=== PATIENT | female | born 1990 | race Caucasian/White ===

== ENCOUNTER 2017-08-18 00:38 | Emergency (ER) | payer OTHER ==
[2017-08-18 00:58] VITALS: BMI 36.0
--- NOTE | 2017-08-18 01:08 | PDOC ---
History of Present Illness - General Chief Complaint: Pain Stated Complaint: HEADACHE,24 WKS PREG Time Seen by Provider: 08/18/17 01:07 History Source: Patient Exam Limitations: No Limitations - History of Present Illness Initial Comments: 08/18/17 01:38 26-year-old femaleGravida 3 para 1 female with history of lower abdominal pain what this Complaining of lower abdominal pain and headache with nausea and vomiting. Patient reports that nausea and vomiting had with the headache has been consistent throughout this . Her care had been at [facility], patient recently moved to this area and has relocated her care to [facility]. Patient denies vaginal discharge, vaginal bleeding, lower back pain, urinary symptoms. Patient reports that throughout this she has persistent nausea which prevents her from eating or drinking. patient took 2 tylenol prior to arrival with no improvement in headache. 08/18/17 01:41 Past History - Past Medical History Allergies/Adverse Reactions: Allergies Allergy/AdvReac Type Severity Reaction Status Date / Time No Known Allergies Allergy Verified 08/18/17 00:55 Home Medications: Ambulatory Orders Acetaminophen [Tylenol] 325 mg PO QID 08/18/17 - Suicide/Smoking/Psychosocial Hx Smoking History: Current every day smoker Have you smoked in the past 12 months: No Number of Cigarettes Smoked Daily: 2 Information on smoking cessation initiated: No Hx Alcohol Use: No Drug/Substance Use Hx: No Review of Systems - Review of Systems Able to Perform ROS?: Yes Is the patient limited Korean proficient: No Constitutional: No: Symptoms Reported, See HPI, Chills, Diaphoresis, Fever, Loss of Appetite, Malaise, Night Sweats, Weakness, Weight Stable, Unintentional Wgt. Loss, Unexplained wgt Loss, Other ABD/GI: Yes: Nausea, Vomiting, Abdominal cramping. No: Symptoms Reported, See HPI, Abdominal Distended, Abd. Pain w/ defecation, Blood Streaked Bowels, Constipated, Diarrhea, Difficulty Swallowing, Poor Appetite, Poor Fluid Intake, Rectal Bleeding, Indigestion, Tarry Stools, Other : No: Symptoms Reported, See HPI, Burning, Dysuria, Discharge, Frequency, Flank Pain, Hematuria, Incontinence, Pain, Urgency, Testicular Mass, Testicular Swelling, Lesions, Testicular Pain, Other Neurological: Yes: Headache. No: Symptoms reported, See HPI, Numbness, Paresthesia, Pre-Existing Deficit, Seizure, Tingling, Tremors, Weakness, Unsteady Gait, Ataxia, Dizziness, Other *Physical Exam - Vital Signs Last Vital Signs Temp Pulse Resp BP Pulse Ox 98.2 F 63 16 123/58 99 08/18/17 00:55 08/18/17 00:55 08/18/17 00:55 08/18/17 00:55 08/18/17 00:55 - Physical Exam General Appearance: Yes: Appropriately Dressed Respiratory/Chest: positive: Lungs Clear, Normal Breath Sounds Cardiovascular: positive: Regular Rhythm, Regular Rate Gastrointestinal/Abdominal: positive: Normal Bowel Sounds, Soft, Other (gravid abdomen). negative: Tender Extremity: positive: Normal Capillary Refill, Normal Inspection, Normal Range of Motion Integumentary: positive: Normal Color, Dry, Warm Neurologic: positive: Fully Oriented, Alert, Normal Mood/Affect ED Treatment Course - LABORATORY CBC & Chemistry Diagram: 08/18/17 01:45 08/18/17 01:45 - RADIOLOGY Radiograph Interpretation: 08/18/17 02:18 There is a single live IUP in transfers position with estimated age 23 weeks and 5 days. Normal heart rate of 1 40 bpm. There is a posterior placenta without previa or abruption. Cervix is 5.1 cm in length and closed. SURESH is 4.3 cm which is decreased for age Progress Note - Progress Note Progress Note: A: abdominal pain; headache P: CBC Beta *DC/Admit/Observation/Transfer Diagnosis at time of Disposition: Abdominal pain affecting , Hyperemesis gravidarum - Discharge Dispostion Disposition: HOME - Referrals - Patient Instructions Printed Discharge Instructions: Hyperemesis Gravidarum Additional Instructions: drink plenty of fluids. take your vitamins daily take vitamin b6 as prescribed. follow up with your senior asic design engineer return to the ER if your symptoms worsen, soaking 2 pads per hour, fever, - Post Discharge Activity
[2017-08-18] MEDS ORDERED: SODIUM CHLORIDE 1,000 ML IV STA (01:16)
[2017-08-18] MEDS ORDERED: METOCLOPRAMIDE HCL INJECTION 10 MG/2 ML VIAL ONE (01:21)
[2017-08-18 01:59] LABS: BASO % 1.2 % (0-2.0); EOS % 1.2 % (0-4.5); HEMATOCRIT 32.8 % (32.4-45.2); HEMOGLOBIN 11.4 GM/dL (10.7-15.3); LYMPH % 25.3 % (8-40); MCH 29.7 pg (25.7-33.7); MCHC 34.8 g/dl (32.0-36.0); MEAN CELL VOLUME 85.5 fl (80-96); MEAN PLT VOLUME 8.3 fl (7.5-11.1); MONO % 8.8 % (3.8-10.2); NEUT % 63.5 % (42.8-82.8); PLATELET COUNT 249 K/MM3 (134-434); RBC 3.83 M/mm3 (3.60-5.2); RDW 13.6 % (11.6-15.6); WHITE BLOOD COUNT 9.6 K/mm3 (4.0-10.0)
[2017-08-18 02:00] LABS: URINE APPEARANCE SLCLOUDY; URINE BILIRUBIN NEGATIVE (NEGATIVE); URINE BLOOD NEGATIVE (NEGATIVE); URINE COLOR AMBER; URINE GLUCOSE (UA) NEGATIVE (NEGATIVE); URINE KETONE TRACE (NEGATIVE); URINE LEUK ESTERASE NEGATIVE (NEGATIVE); URINE NITRITE NEGATIVE (NEGATIVE); URINE UROBILINOGEN 4.0 E.U/dl mg/dL (0.2-1.0)
[2017-08-18 02:04] LABS: URINE PROTEIN 1+ (NEGATIVE)
[2017-08-18 02:06] LABS: CALCIUM OXALATE CRYSTALS MODERATE /hpf (NONE SEEN); EPI CELLS FEW /HPF (FEW); URINE BACTERIA MODERATE /hpf (NONE SEEN); URINE MUCUS MANY
[2017-08-18 02:15] LABS: PROTHROMBIN TIME (PATIENT) 11.3 SEC (9.98-11.88)
[2017-08-18 02:35] LABS: ANION GAP 12 (8-16); BLOOD UREA NITROGEN 10 mg/dL (7-18); CHLORIDE 106 mmol/L (98-107); CO2 22 mmol/L (21-32); CREATININE 0.5 mg/dL (0.55-1.02); GLUCOSE,RANDOM 84 mg/dL (74-106); SODIUM 140 mmol/L (136-145)
[2017-08-18 03:45] VITALS: BP 114/63; PULSE 55; TEMP 98.3
[2017-08-19] MEDS ORDERED: METOCLOPRAMIDE HCL INJECTION 10 MG/2 ML VIAL IVPB ONE (01:30)
== END 2017-08-18 04:15 | disposition home or self-care (01) ==
LOC: JER 00:38
PROC: 3E0337Z Introduction of Electrolytic and Water Balance Substance into Peripheral Vein, Percutaneous Approach (ICD-10-PCS; principal; 2017-08-18)
DX: O26.892 Other specified pregnancy related conditions, second trimester (principal); O21.0 Mild hyperemesis gravidarum; Z3A.23 23 weeks gestation of pregnancy
CPT/HCPCS: 36415; 76801-TC; 80048; 81003; 81015; 84702; 85025; 85610; 96360; 99281-25; J7030

== ENCOUNTER 2018-02-06 23:11 | Emergency (ER) | payer OTHER ==
[2018-02-06 23:19] VITALS: BP 156/80; PULSE 80; TEMP 98.3; BMI 36.0
--- NOTE | 2018-02-06 23:32 | PDOC ---
History of Present Illness - General Chief Complaint: Toothache Stated Complaint: Toothache Time Seen by Provider: 02/06/18 23:31 Past History - Past Medical History Allergies/Adverse Reactions: Allergies Allergy/AdvReac Type Severity Reaction Status Date / Time No Known Allergies Allergy Verified 02/06/18 23:19 Home Medications: Ambulatory Orders Acetaminophen [Tylenol] 325 mg PO QID 08/18/17 COPD: No - Immunization History Immunization Up to Date: Yes - Suicide/Smoking/Psychosocial Hx Smoking History: Never smoked Have you smoked in the past 12 months: No Number of Cigarettes Smoked Daily: 2 Information on smoking cessation initiated: No Hx Alcohol Use: No Drug/Substance Use Hx: No *Physical Exam - Vital Signs Last Vital Signs Temp Pulse Resp BP Pulse Ox 98.3 F 80 20 156/80 99 02/06/18 23:17 02/06/18 23:17 02/06/18 23:17 02/06/18 23:17 02/06/18 23:17
--- NOTE | 2018-02-06 23:38 | PDOC ---
History of Present Illness - General History Source: Patient Exam Limitations: No Limitations - History of Present Illness Initial Comments: 02/07/18 00:00 The patient is a 27 year old female with no significant PMH who presents to the emergency department with a toothache since earlier today. The patient reports that she was ou eating earlier today when she got food stuck in her fractured teeth in the upper and lower right side of her mouth. The patient reports that after getting the food stuck she experienced some severe associated pain and swelling. The patient also endorses some ear pain. She reports that he has a dental appointment coming up this month. The patient reports that she took naproxen for her pain at around 12:30 pm with no apparent relief. She states that she then too tylenol at 2pm which minimized her swelling. The patient denies any other symptoms. She denies any fever, chills, nausea, vomit, diarrhea ,constipation or urinary symptoms. She denies any chest pain, shortness of breath, headache and dizziness. The patient denies any other complaints. <Bia Chou - Last Filed: 02/07/18 00:00> <Charity Wick - Last Filed: 02/07/18 02:56> - General Chief Complaint: Toothache Stated Complaint: Toothache Time Seen by Provider: 02/06/18 23:31 Past History <Bia Chou - Last Filed: 02/07/18 00:00> - Past Medical History COPD: No - Immunization History Immunization Up to Date: Yes - Suicide/Smoking/Psychosocial Hx Smoking History: Never smoked Have you smoked in the past 12 months: No Number of Cigarettes Smoked Daily: 2 Information on smoking cessation initiated: No Hx Alcohol Use: No Drug/Substance Use Hx: No <Charity Wick - Last Filed: 02/07/18 02:56> - Past Medical History Allergies/Adverse Reactions: Allergies Allergy/AdvReac Type Severity Reaction Status Date / Time No Known Allergies Allergy Verified 02/06/18 23:19 Home Medications: Ambulatory Orders Acetaminophen [Tylenol] 325 mg PO QID 08/18/17 Penicillin V Potassium [Pen Vee K -] 250 mg PO QID #28 tablet 02/06/18 Review of Systems - Review of Systems Able to Perform ROS?: Yes Comments:: 02/07/18 00:00 GENERAL/CONSTITUTIONAL: No fever or chills. No weakness. HEAD, EYES, EARS, NOSE AND THROAT: (+)toothache. No change in vision. No ear pain or discharge. No sore throat. CARDIOVASCULAR: No chest pain or shortness of breath. RESPIRATORY: No cough, wheezing, or hemoptysis. GASTROINTESTINAL: No nausea, vomiting, diarrhea or constipation. GENITOURINARY: No dysuria, frequency, or change in urination. MUSCULOSKELETAL: No joint or muscle swelling or pain. No neck or back pain. SKIN: No rash NEUROLOGIC: No headache, vertigo, loss of consciousness, or change in strength/ sensation. ENDOCRINE: No increased thirst. No abnormal weight change. HEMATOLOGIC/LYMPHATIC: No anemia, easy bleeding, or history of blood clots. ALLERGIC/IMMUNOLOGIC: No hives or skin allergy. <Bia Chou - Last Filed: 02/07/18 00:00> *Physical Exam - Vital Signs Last Vital Signs Temp Pulse Resp BP Pulse Ox 98.3 F 80 20 156/80 99 02/06/18 23:17 02/06/18 23:17 02/06/18 23:17 02/06/18 23:17 02/06/18 23:17 - Physical Exam Comments: 02/07/18 00:00 GENERAL: Awake, alert, and fully oriented, in no acute distress HEAD: (+)posterior right upper and lower molars broken. No gingivite swelling. No signs of trauma EYES: PERRLA, EOMI, sclera anicteric, conjunctiva clear ENT: Auricles normal inspection, hearing grossly normal, nares patent, oropharynx clear without exudates. Moist mucosa NECK: Normal ROM, supple, no lymphadenopathy, JVD, or masses LUNGS: Breath sounds equal, clear to auscultation bilaterally. No wheezes, and no crackles HEART: Regular rate and rhythm, normal S1 and S2, no murmurs, rubs or gallops ABDOMEN: Soft, nontender, normoactive bowel sounds. No guarding, no rebound. No masses EXTREMITIES: Normal range of motion, no edema. No clubbing or cyanosis. No cords, erythema, or tenderness NEUROLOGICAL: Cranial nerves II through XII grossly intact. Normal speech, normal gait SKIN: Warm, Dry, normal turgor, no rashes or lesions noted. <Bia Chou - Last Filed: 02/07/18 00:00> - Vital Signs Last Vital Signs Temp Pulse Resp BP Pulse Ox 98.3 F 80 20 156/80 99 02/06/18 23:17 02/06/18 23:17 02/06/18 23:17 02/06/18 23:17 02/06/18 23:17 <Charity Wick - Last Filed: 02/07/18 02:56> Medical Decision Making - Medical Decision Making 02/07/18 02:56 Home with PEN vee K and dental f/u/ Pt treated with pen vee k in the ER and percocet <Charity Wick - Last Filed: 02/07/18 02:56> *DC/Admit/Observation/Transfer - Attestations Scribe Attestion: 02/07/18 00:01 Documentation prepared by Bia Chou, acting as medical economics consultant for Charity Wick MD. <Bia Chou - Last Filed: 02/07/18 00:00> - Discharge Dispostion Decision to Admit order: No <Charity Wick - Last Filed: 02/07/18 02:56> Diagnosis at time of Disposition: Dental cavities, Toothache - Discharge Dispostion Disposition: HOME Condition at time of disposition: Stable - Prescriptions Prescriptions: Penicillin V Potassium [Pen Vee K -] 250 mg PO QID #28 tablet - Patient Instructions Printed Discharge Instructions: DI for Tooth Decay, DI for Dental Pain
[2018-02-06] MEDS ORDERED: PENICILLIN V POTASSIUM 500 MG TABLET PO ONE (23:57)
== END 2018-02-07 01:29 | disposition home or self-care (01) ==
LOC: JER 23:11
DX: K08.89 Other specified disorders of teeth and supporting structures (principal); K02.9 Dental caries, unspecified
CPT/HCPCS: 99282-25

== ENCOUNTER 2018-10-26 19:27 | Emergency (ER) | payer OTHER ==
--- NOTE | 2018-10-26 19:33 | PDOC ---
Rapid Medical Evaluation Time Seen by Provider: 10/26/18 19:32 Medical Evaluation: Allergies Allergy/AdvReac Type Severity Reaction Status Date / Time No Known Allergies Allergy Verified 02/06/18 23:19 10/26/18 19:32 I have performed a brief in-person evaluation of this patient. The patient presents with a chief complaint of: 8 weeks , vomiting and diarrhea Pertinent physical exam findings:stable and in NAD, non-focal I have ordered the following:labs The patient will proceed to the ED for further evaluation.
[2018-10-26 19:35] VITALS: BP 123/66; PULSE 54; TEMP 97.8; BMI 33.4
[2018-10-26] MEDS ORDERED: SODIUM CHLORIDE 1,000 ML IV STA (19:35)
[2018-10-26] MEDS ORDERED: ONDANSETRON 4 MG/2 ML VIAL IVPUSH ONE (19:36)
--- NOTE | 2018-10-26 20:49 | PDOC ---
History of Present Illness - General Chief Complaint: Nausea/Vomiting Stated Complaint: 8 WKS /DIARRHEA/VOMITING Time Seen by Provider: 10/26/18 19:32 Past History - Past Medical History Allergies/Adverse Reactions: Allergies Allergy/AdvReac Type Severity Reaction Status Date / Time No Known Allergies Allergy Verified 10/26/18 19:35 Home Medications: Ambulatory Orders Acetaminophen [Tylenol] 325 mg PO QID 08/18/17 Penicillin V Potassium [Pen Vee K -] 250 mg PO QID #28 tablet 02/06/18 COPD: No - Immunization History Immunization Up to Date: Yes - Suicide/Smoking/Psychosocial Hx Smoking History: Unknown if ever smoked Have you smoked in the past 12 months: No Number of Cigarettes Smoked Daily: 2 Information on smoking cessation initiated: No Hx Alcohol Use: No Drug/Substance Use Hx: No *Physical Exam - Vital Signs Last Vital Signs Temp Pulse Resp BP Pulse Ox 97.8 F 54 L 16 123/66 100 10/26/18 19:33 10/26/18 19:33 10/26/18 19:33 10/26/18 19:33 10/26/18 19:33 *DC/Admit/Observation/Transfer - Referrals Referrals: Nat Perrin MD [Primary Care Provider] - - Patient Instructions - Post Discharge Activity
[2018-10-26 21:21] LABS: BASO % 1.2 % (0-2.0); EOS % 0.2 % (0-4.5); HEMATOCRIT 39.6 % (32.4-45.2); HEMOGLOBIN 13.1 GM/dL (10.7-15.3); LYMPH % 21.1 % (8-40); MCH 28.8 pg (25.7-33.7); MCHC 33.2 g/dl (32.0-36.0); MEAN CELL VOLUME 86.7 fl (80-96); MEAN PLT VOLUME 8.7 fl (7.5-11.1); NEUT % 70.5 % (42.8-82.8); PLATELET COUNT 239 K/MM3 (134-434); RBC 4.57 M/mm3 (3.60-5.2); RDW 13.9 % (11.6-15.6); WHITE BLOOD COUNT 10.2 K/mm3 (4.0-10.0)
[2018-10-26] MEDS ORDERED: ONDANSETRON 4 MG/2 ML VIAL ONE (21:26)
[2018-10-26 21:53] LABS: ALBUMIN 3.8 g/dl (3.4-5.0); BILIRUBIN,TOTAL 0.7 mg/dL (0.2-1); CALCIUM 9.1 mg/dL (8.5-10.1); CREATININE 0.5 mg/dL (0.55-1.3); POTASSIUM 3.8 mmol/L (3.5-5.1); TOT PROT 7.2 g/dl (6.4-8.2)
[2018-10-26 22:22] LABS: PH,URINE 5.5 (5.0-8.0); URINE APPEARANCE CLOUDY; URINE BILIRUBIN 1+ (NEGATIVE); URINE COLOR DK YELLOW; URINE GLUCOSE (UA) NEGATIVE (NEGATIVE); URINE KETONE 3+ (NEGATIVE); URINE LEUK ESTERASE NEGATIVE (NEGATIVE); URINE NITRITE NEGATIVE (NEGATIVE); URINE PROTEIN NEGATIVE (NEGATIVE)
--- NOTE | 2018-10-26 23:09 | PDOC ---
Documentation entered by Ga Zhao SCRIBE, acting as scribe for Kailyn Erazo MD. Kailyn Erazo MD: This documentation has been prepared by the Cece herrera Xhesika, SCRIBE, under my direction and personally reviewed by me in its entirety. I confirm that the documentation accurately reflects all work, treatment, procedures, and medical decision making performed by me. History of Present Illness - General Chief Complaint: Nausea/Vomiting Stated Complaint: 8 WKS /DIARRHEA/VOMITING Time Seen by Provider: 10/26/18 19:32 History Source: Patient Exam Limitations: No Limitations - History of Present Illness Initial Comments: 10/26/18 20:57 The patient is a 27 year old female, A1, currently , with no significant PMH of who presents to the emergency department with 4 days of nausea, vomiting, and diarrhea. The patient notes that she endorsed vaginal spotting last week, however, it has since self resolved. The patient states her LMP was 08/30/18 and she had her IUD taken out on 07/27. The patient notes that she went to [address] [place] [address] last week to register and they confirmed her . The patient denies chest pain, shortness of breath or dizziness. The patient denies fever, chills, or constipation. The patient denies dysuria, frequency, urgency or hematuria. Allergy: NKDA PCP: Nat Johnson Past History - Past Medical History Allergies/Adverse Reactions: Allergies Allergy/AdvReac Type Severity Reaction Status Date / Time No Known Allergies Allergy Verified 10/26/18 19:35 Home Medications: Ambulatory Orders Acetaminophen [Tylenol] 325 mg PO QID 08/18/17 Penicillin V Potassium [Pen Vee K -] 250 mg PO QID #28 tablet 02/06/18 COPD: No - Immunization History Immunization Up to Date: Yes - Suicide/Smoking/Psychosocial Hx Smoking History: Unknown if ever smoked Have you smoked in the past 12 months: No Number of Cigarettes Smoked Daily: 2 Information on smoking cessation initiated: No Hx Alcohol Use: No Drug/Substance Use Hx: No Review of Systems - Review of Systems Able to Perform ROS?: Yes Comments:: 10/26/18 20:58 GENERAL/CONSTITUTIONAL: No fever or chills. No weakness. HEAD, EYES, EARS, NOSE AND THROAT: No change in vision. No ear pain or discharge. No sore throat. CARDIOVASCULAR: No chest pain or shortness of breath. RESPIRATORY: No cough, wheezing, or hemoptysis. GASTROINTESTINAL: (+) nausea, (+) vomiting, (+) diarrhea. No constipation. GENITOURINARY: No dysuria, frequency, or change in urination. MUSCULOSKELETAL: No joint or muscle swelling or pain. No neck or back pain. SKIN: No rash NEUROLOGIC: No headache, vertigo, loss of consciousness, or change in strength/ sensation. ENDOCRINE: No increased thirst. No abnormal weight change. HEMATOLOGIC/LYMPHATIC: No anemia, easy bleeding, or history of blood clots. ALLERGIC/IMMUNOLOGIC: No hives or skin allergy. All Other Systems: Reviewed and Negative *Physical Exam - Vital Signs Last Vital Signs Temp Pulse Resp BP Pulse Ox 97.8 F 54 L 16 123/66 100 10/26/18 19:33 10/26/18 19:33 10/26/18 19:33 10/26/18 19:33 10/26/18 19:33 - Physical Exam Comments: 10/26/18 20:59 GENERAL: Awake, alert, and fully oriented, in no acute distress HEAD: No signs of trauma EYES: PERRLA, EOMI, sclera anicteric, conjunctiva clear ENT: Auricles normal inspection, hearing grossly normal, nares patent, oropharynx clear without exudates. Moist mucosa NECK: Normal ROM, supple, no lymphadenopathy, JVD, or masses LUNGS: Breath sounds equal, clear to auscultation bilaterally. No wheezes, and no crackles HEART: Regular rate and rhythm, normal S1 and S2, no murmurs, rubs or gallops ABDOMEN: (+) Soft, nontender, normoactive bowel sounds. No guarding, no rebound. No masses EXTREMITIES: Normal range of motion, no edema. No clubbing or cyanosis. No cords, erythema, or tenderness NEUROLOGICAL: Cranial nerves II through XII grossly intact. Normal speech, normal gait SKIN: Warm, Dry, normal turgor, no rashes or lesions noted. ED Treatment Course - LABORATORY CBC & Chemistry Diagram: 10/26/18 21:12 10/26/18 21:12 Medical Decision Making - Medical Decision Making 10/27/18 01:[facility] [phone] No current vaginal bleeding. No focal abdominal tenderness. ultrasound shows a single live IUP of 6 weeks and 5 days with normal heartbeat at 130 bpm. No subchorionic bleed. Ovaries unremarkable. No CVA or free fluid. 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
== END 2018-10-27 02:49 | disposition home or self-care (01) ==
LOC: JER 19:27
PROC: 3E033GC Introduction of Other Therapeutic Substance into Peripheral Vein, Percutaneous Approach (ICD-10-PCS; principal; 2018-10-26)
DX: O26.891 Other specified pregnancy related conditions, first trimester (principal); O21.0 Mild hyperemesis gravidarum; Z3A.01 Less than 8 weeks gestation of pregnancy
CPT/HCPCS: 36415; 76801-TC; 80053; 81003; 84702; 84703; 85025; 96374; 99282-25; J7030

== ENCOUNTER 2019-06-14 17:10 | Inpatient (IN) | payer OTHER ==
[2019-06-14 18:05] VITALS: BMI 38.0
[2019-06-14] MEDS ORDERED: DINOPROSTONE 10 MG VAGINAL SUPPOSITORY VG ONE (18:35)
[2019-06-14] MEDS ORDERED: PROMETHAZINE HCL 25 MG/1 ML VIAL IVPUSH ONE (18:43)
[2019-06-14] MEDS ORDERED: BUTORPHANOL TARTRATE 1 MG/ML VIAL IVPB ONE (18:43)
[2019-06-14] MEDS ORDERED: SODIUM PHOSPHATE/NA BIPHOS 133 ML ENEMA PR ONE (18:45)
[2019-06-14] MEDS ORDERED: DEXTROSE 5%-LACTATED RINGERS 1,000 ML IV SCH (18:45)
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
[2019-06-14 18:57] LABS: BASO % 0.6 % (0-2.0); HEMATOCRIT 35.1 % (32.4-45.2); HEMOGLOBIN 11.4 GM/dL (10.7-15.3); LYMPH % 18.5 % (8-40); MCH 27.7 pg (25.7-33.7); MCHC 32.6 g/dl (32.0-36.0); MEAN PLT VOLUME 8.7 fl (7.5-11.1); NEUT % 70.9 % (42.8-82.8); PLATELET COUNT 268 K/MM3 (134-434); RBC 4.13 M/mm3 (3.60-5.2); RDW 14.2 % (11.6-15.6); WHITE BLOOD COUNT 11.2 K/mm3 (4.0-10.0)
[2019-06-14 19:06] LABS: INR 0.92 (0.83-1.09); PROTHROMBIN TIME (PATIENT) 10.8 SEC (9.7-13.0)
[2019-06-14 19:09] LABS: ACTIVATED PTT 28.1 SECONDS (25.2-36.5)
[2019-06-14 19:19] LABS: BLOOD UREA NITROGEN 8.5 mg/dL (7-18); CREATININE 0.7 mg/dL (0.55-1.3); POTASSIUM 3.8 mmol/L (3.5-5.1)
[2019-06-15] MEDS ORDERED: FENTANYL/BUPIVACAINE/NS/PF - PCEA - 50 ML DISP.SYRIN EP ONE (01:55)
[2019-06-15] MEDS ORDERED: NALOXONE HCL 0.4 MG/ML VIAL IVPUSH PRN (02:16)
[2019-06-15] MEDS ORDERED: FENTANYL/BUPIVACAINE/NS/PF - PCEA - 50 ML DISP.SYRIN EP SCH (02:30)
[2019-06-15] MEDS ORDERED: OXYTOCIN 20 UNITS in 0.9% NS 20 UNIT/1,000 ML INFUS.BAG IV ONE ×2 (02:37→04:30)
[2019-06-15] MEDS ORDERED: OXYTOCIN 30 UNITS in 0.9% NS 30 UNIT/500 ML INFUS.BAG IVPB ONE (02:43)
[2019-06-15] MEDS ORDERED: BENZOCAINE 28 GM HEMORRHOIDAL OINTMENT TP PRN (03:25)
[2019-06-15] MEDS ORDERED: WITCH HAZEL 50% (TUCKS) 40 PAD/JAR PAD TP PRN (03:25)
[2019-06-15] MEDS ORDERED: BISACODYL 10 MG SUPP.RECT RC PRN (03:25)
[2019-06-15] MEDS ORDERED: BENZOCAINE 20% 57 GM BOTTLE TP PRN (03:25)
[2019-06-15] MEDS ORDERED: METHYLERGONOVINE MALEATE 0.2 MG/1 ML AMP IM PRN (03:25)
[2019-06-15] MEDS ORDERED: oxyCODONE HCL 5 MG TABLET PO PRN (03:25)
[2019-06-15] MEDS ORDERED: OXYTOCIN 20 UNITS in 0.9% NS 20 UNIT/1,000 ML INFUS.BAG IV SCH (03:30)
--- NOTE | 2019-06-15 03:38 | PN ---
Progress Note, Labor Vaginal Exam #1 Labor Exam Date: 06/15/19 Labor Exam Time: 01:15 Heart Rate (range): 130-140 Dilatation: 2-3 cm Effacement (%): 70 Amniotic Membrane Status: Intact Presentation: Vertex/Position Station: -2 (-3/-2) Remarks: pt uncontrollable . crying uc 2-3 min . fhr tracing unable to record,loss of contact requesting epidural anesthesiologist busy giving epidural to another pt Vaginal Exam #2 Labor Exam Date: 06/15/19 Labor Exam Time: 01:30 Heart Rate (range): 130 Dilatation: 5 Effacement (%): 80 Amniotic Membrane Status: Intact (cervidil removed) Presentation: Vertex/Position Station: -2 Remarks: 1.30 pt sitting for epidural at 2.00 aM 1.35 srom 2.15 AM epidural given . pt comfortable fhr 60-80 bpm ,cat -2 UC 3-4 min bP 61/34, 73/57 . gradually BP increased, before delivery 109/55 scalp electrode applied 2,15 Am to 2.40 AM FHR fluctuating [id number] rt lateral position given cx 6-7 cm/90 % _1/0 station 2.48 AM fully dialated +1 /+2station , pt pushing Nursery nurse in room at 2.57 AM due to Low BP 2nd iv line 1000 ml plasmalyte was started
--- NOTE | 2019-06-15 04:00 | PN ---
Delivery - Delivery Vaginal Delivery: No Problems, Spontaneous (baby deievered Mary position, cord around neck x1 was untangled , ant shoulder delivered by giving exagerated lithotomy position & suprapubic pressure , immediate oral & nasal suction was done , baby handed over to nurse, 8/9, . true knot in the cord was noted . cord segment sent for cord blood gas . 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 gbs neg 06/14/19 cervidil insertion done pt prgressed in labor with cervidil episode of hypotension & bradycardia post epidural was noted delivery uneventful plan psyche consult since h/o ptsd, depression
[2019-06-15] MEDS: ACETAMINOPHEN 325 MG TABLET (FP) PO PRN ×3 (07:26→23:48)
[2019-06-15] MEDS: IBUPROFEN 600 MG TABLET (FP) PO PRN ×3 (07:26→23:48)
--- NOTE | 2019-06-15 09:04 | PN ---
Progress Note (short form) - Note Progress Note: ppd #0 c/o severe cramps pt is sober , not agitated , smiling bleeding moderate ut firm below umblicus she will make attempt to BF she states she is not depressed she discussed options of contraception, iud, implant, btl with me r/b/a told Selected Entries 06/15/19 04:35 Temperature 98.5 F Pulse Rate 74 Blood Pressure 133/72 ct pp care Problem List - Problems (1) Post-term , 40-42 weeks of gestation Code(s): O48.0 - POST-TERM (2) Encounter for induction of labor Code(s): Z34.90 - ENCNTR FOR SUPRVSN OF NORMAL , UNSP, UNSP TRIMESTER (3) Obesity (BMI 30-39.9) Code(s): E66.9 - OBESITY, UNSPECIFIED
[2019-06-15] MEDS: FERROUS SO4 325 MG TABLET (FP) PO SCH ×2 (09:56→18:04)
[2019-06-15] MEDS: PRENATAL VITAMINS W/ FOLIC ACID TABLET (FP) PO SCH (09:56)
--- NOTE | 2019-06-15 11:20 | CON.PSY ---
Psychiatry Consult Chief Complaint: 28 Prema old female had her third child seen for Psych eval. History of Depression been seen bt [facility]. Patient feels ok, no problems at HOme and her significant other is Very Supportive. - Previous Psychiatric Treatment Outpatient: Less than 6 mos ago Inpatient: One prior admission - Previous Substance Abuse Treatment Outpatient: None Inpatient: None - Reason for Previous Treatment Reason for Previous Treatment: Major Depression - Current Medications Current Medications: Active Medications Acetaminophen (Tylenol -) 650 mg PO Q3H PRN PRN Reason: PAIN LEVEL 1-5 Last Admin: 06/15/19 07:26 Dose: 650 mg Benzocaine (Americaine 20% [place] -) 1 spray TP PRN PRN PRN Reason: PAIN Benzocaine (Americaine Ointment -) 1 applic TP PRN PRN PRN Reason: PAIN Bisacodyl (Dulcolax Suppository -) 10 mg RC PRN PRN PRN Reason: CONSTIPATION Ferrous Sulfate (Feosol -) 325 mg PO BIDWM [facility] Last Admin: 06/15/19 09:56 Dose: 325 mg Oxytocin/Sodium Chloride (Normal Saline+20 Units Oxytocin -) 20 unit in 1,000 mls @ 125 mls/hr IV ASDIR [facility] Last Admin: 06/15/19 03:00 Dose: 125 mls/hr Ibuprofen (Motrin -) 600 mg PO Q4H PRN PRN Reason: PAIN LEVEL 4 - 6 Last Admin: 06/15/19 07:26 Dose: 600 mg Methylergonovine Maleate (Methergine Injection -) 0.2 mg IM Q4H PRN PRN Reason: EXCESSIVE BLEEDING (L&D) Oxycodone HCl (Roxicodone -) 5 mg PO Q6H PRN PRN Reason: PAIN LEVEL 7 - 10 Multivit/Folic Acid/Iron ( Vitamins (Sjr) -) 1 tab PO DAILY [facility] Last Admin: 06/15/19 09:56 Dose: 1 tab Senna/Docusate Sodium (Pericolace -) 2 tablet PO HS PRN PRN Reason: CONSTIPATION Witch Marisol/Glycerin (Tucks Pads -) 1 pad TP PRN PRN PRN Reason: PAIN - Allergies Allergies: Allergies Allergy/AdvReac Type Severity Reaction Status Date / Time No Known Allergies Allergy Verified 06/14/19 17:32 - Current Living Status Usual Living Arrangement: With Significant Other - Current Mental Status Evaluation Appearance: Well Groomed Attitude: Cooperative - Affect Affect: Full Range Appropriateness: Appropriate to Content - Mood Mood: Euthymic - Speech/Language Expressive: Coherent - Psychomotor Activity Psychomotor Activity: Normal - Self Perception Self Perception: No Impairment - Cognition Attention: Alert Orientation: Time Memory, Immediate Recall: Intact Memory, Short Term: 3/3 Memory, Remote with Promptin/3 - Concentration Serial Sevens Intact: Yes Simple Calculations Intact: Yes - Abstraction Proverb Interpretation: Intact Judgement: Intact - Insight Insight: Intact - Impulse Control Impulse Control: Good Control - Suicidal Ideation Suicidal Ideation: No - Homicidal Ideation Homicidal Ideation: No Assessment/Plan 1) Patient is clinically stable. 2) not suicidal or Homicidal at this time. 3) wiil be followed by [facility].
[2019-06-15 16:27] LABS: COCAINE, UR NEGATIVE ng/ml (CUTOFF=300); METHADONE, UR NEGATIVE ng/ml (CUTOFF=300); OPIATES, URI NEGATIVE ng/ml (CUTOFF=300); PHENCYCLIDINE,URINE NEGATIVE ng/ml (CUTOFF=25); URINE AMPHETAMINES NEGATIVE ng/ml (CUTOFF=500); URINE BARBITURATES NEGATIVE ng/ml (CUTOFF=200); URINE BENZODIAZEPINES NEGATIVE ng/ml (CUTOFF=200)
--- NOTE | 2019-06-16 06:28 | PN ---
Post Progress Note - Subjective Subjective: Pain controlled. OOB, ambulating. Lochia less than menses. Notes congestion. Type of Delivery: Vital Signs: Vital Signs Temperature 98.0 F 06/15/19 21:48 Pulse Rate 61 06/15/19 21:48 Respiratory Rate 20 06/15/19 21:48 Blood Pressure 132/73 06/15/19 21:48 O2 Sat by Pulse Oximetry (%) 100 06/15/19 02:45 Uterus: Yes: Fundus below umbilicus Abdomen/GI: Yes: Abdomen soft Lochia: Yes: Rubra Lochia, amount: Small Extremities: Yes: Calves non-tender Activity: Ambulating - Labs Labs: CBC WBC 11.2 K/mm3 (4.0-10.0) H 06/14/19 18:15 RBC 4.13 M/mm3 (3.60-5.2) 06/14/19 18:15 Hgb 11.4 GM/dL (10.7-15.3) 06/14/19 18:15 Hct 35.1 % (32.4-45.2) 06/14/19 18:15 MCV 85.0 fl (80-96) 06/14/19 18:15 MCH 27.7 pg (25.7-33.7) 06/14/19 18:15 MCHC 32.6 g/dl (32.0-36.0) 06/14/19 18:15 RDW 14.2 % (11.6-15.6) 06/14/19 18:15 Plt Count 268 K/MM3 (134-434) 06/14/19 18:15 MPV 8.7 fl (7.5-11.1) 06/14/19 18:15 Absolute Neuts (auto) 7.9 K/mm3 (1.5-8.0) 06/14/19 18:15 Neutrophils % 70.9 % (42.8-82.8) 06/14/19 18:15 Lymphocytes % 18.5 % (8-40) 06/14/19 18:15 Monocytes % 6.0 % (3.8-10.2) 06/14/19 18:15 Eosinophils % 4.0 % (0-4.5) D 06/14/19 18:15 Basophils % 0.6 % (0-2.0) 06/14/19 18:15 Nucleated RBC % 0 % (0-0) 06/14/19 18:15 Assessment/Plan 28yo s/p , PPD#1 Routine PP care PO pain control Labs pending D/C to home PPD#2 Vish Olivares MD
[2019-06-16 09:16] LABS: BASO % 0.5 % (0-2.0); EOS % 4.7 % (0-4.5); HEMATOCRIT 29.8 % (32.4-45.2); HEMOGLOBIN 10.1 GM/dL (10.7-15.3); MCH 28.5 pg (25.7-33.7); MCHC 33.8 g/dl (32.0-36.0); MEAN CELL VOLUME 84.2 fl (80-96); MEAN PLT VOLUME 8.6 fl (7.5-11.1); MONO % 6.6 % (3.8-10.2); NEUT % 70.2 % (42.8-82.8); PLATELET COUNT 216 K/MM3 (134-434); RBC 3.54 M/mm3 (3.60-5.2); RDW 13.9 % (11.6-15.6); WHITE BLOOD COUNT 9.7 K/mm3 (4.0-10.0)
[2019-06-16] MEDS: PRENATAL VITAMINS W/ FOLIC ACID TABLET (FP) PO SCH (09:38)
[2019-06-16] MEDS: FERROUS SO4 325 MG TABLET (FP) PO SCH ×2 (09:38→18:03)
[2019-06-16] MEDS: guaiFENesin 600 MG TABLET.ER (FP) PO SCH ×2 (09:38→21:05)
[2019-06-16] MEDS: ACETAMINOPHEN 325 MG TABLET (FP) PO PRN (21:03)
[2019-06-16] MEDS: IBUPROFEN 600 MG TABLET (FP) PO PRN (21:03)
[2019-06-16] MEDS ORDERED: SENNOSIDES/DOCUSATE COMBO (SENNA PLUS) TABLET (UD) PO PRN (22:00)
--- NOTE | 2019-06-17 08:09 | DS ---
Physical Exam-ADDICTION THERAPIST Vital Signs: Vital Signs Temperature 98.4 F 06/16/19 20:29 Pulse Rate 81 06/16/19 20:29 Respiratory Rate 20 06/16/19 20:29 Blood Pressure 120/77 06/16/19 20:29 O2 Sat by Pulse Oximetry (%) 98 06/16/19 09:00 Constitutional: Yes: Well Nourished, No Distress, Calm Eyes: Yes: WNL, Conjunctiva Clear, EOM Intact HENT: Yes: WNL, Atraumatic, Normocephalic Neck: Yes: WNL, Supple, Trachea Midline Cardiovascular: Yes: WNL, Regular Rate and Rhythm Respiratory: Yes: WNL, Regular, CTA Bilaterally Gastrointestinal: Yes: WNL ...Rectal Exam: Yes: WNL Renal/: Yes: WNL ....Post : Yes: Uterus firm, Uterus non-tender, Slight lochia rubra Breast(s): Yes: WNL Musculoskeletal: Yes: WNL Extremities: Yes: WNL Edema: No Integumentary: Yes: WNL Neurological: Yes: WNL, Alert, Oriented ...Motor Strength: WNL Psychiatric: Yes: WNL, Alert, Oriented Labs: CBC, BMP 06/16/19 08:20 06/14/19 18:15 Delivery - Delivery Vaginal Delivery: No Problems, Spontaneous (baby deievered Mary position, cord around neck x1 was untangled , ant shoulder delivered by giving exagerated lithotomy position & suprapubic pressure , immediate oral & nasal suction was done , baby handed over to nurse, 8/9, . true knot in the cord was noted . cord segment sent for cord blood gas . placenta delievered completely with membranes .perineum intact , 3 vessel cord was noted) Type of Anesthesia: Epidural Episiotomy/Laceration: None EBL (cc): 300 (50 ml [address] urine [address] cath ) Delivery, Single - Stages of Labor Date 1st Stage Initiatied: 06/15/19 Time 1st Stage Initiated: 00:30 Date 2nd Stage Initiated: 06/15/19 Time 2nd Stage Initiated: 02:48 Date of Delivery: 06/15/19 Time of Delivery: 02:57 Time Placenta Delivered: 03:00 Placenta: Yes: Spontaneous, Uterine Exploration - Condition of Food Dehydrator Operator/Loan Auditor Present: No Infant Gender: Female Weight: 8 lb Position: Left, OA (cord around neckx1 & true knot in the cord) Total Hours ROM (Hrs/Mins): 1hr 25 min - 1 Minute Total Score: 8 5 Minutes Total Score: 9 - [place] Feeding Plan Initial Plan: Elected not to breastfeed exclusively throughout hospitalization Discharge Summary Problems reviewed: Yes Reason For Visit: INDUCTION OF LABOR Current Active Problems Encounter for induction of labor (Acute) Normal spontaneous vaginal delivery (Acute) Obesity (BMI 30-39.9) (Acute) Post-term , 40-42 weeks of gestation (Acute) Procedures: Principal: Hospital Course: no complication, hx of depression , had psych evaluation Health Concerns: depression Plan of Treatment: follow up with Psych one week follow up [facility] care 2 weeks Goals: to normal pre function Hb 12 Condition: Stable - Instructions Diet, Activity, Other Instructions: Post Instructions DIET: Continue good diet high in protein, calcium, and iron rich foods. Drink at least eight (8) glasses of water daily in addition to other fluids. ct Regular diet MEDICATIONS: Continue vitamins and iron as previously directed. Motrin and Tylenol may be taken for minor discomfort. ACTIVITY: Mild to moderate exercise may be started in two (2) weeks. Take frequent rest periods. Resume normal activity after six (6) week check up. WOUND CARE OF OPERATIVE SITE: Continue use of perineal bottle until vaginal discharge stops. Keep area clean. Shower daily. Keep abdominal wound dry. Report any drainage or redness to physician. Tub baths, tampons and douches are not permitted for [address] Breast feeding & or Bottle feeding BREAST CARE: (For those that are not ): If engorgement occurs: Wear tight fitting bra. Take Tylenol or Motrin for pain. Apply cold packs (ice in bags to each breast ) FAMILY PLANNING: There are many control alternatives to pursue and they should be discussed at your first office visit. You may resume sexual activity after your six (6) week check up. (Remember, breast feeding is not a contraceptive) NEXT PHYSICIAN APPOINTMENT: Be certain to call for a four -six (4-6) week appointment, unless otherwise directed. . KEEP YOUR F?U AAPT WITH THERAPIST Call Clinic or got to Emergency Dept if you have any of the following: Heavy vaginal bleeding Painful urination Leg pain Unusual odor noted to vaginal bleeding High fever Red streaking noted on breast Referrals: Kamila Guerin MD [Staff Physician] - Disposition: HOME - Home Medications Comprehensive Discharge Medication List: Ambulatory Orders Acetaminophen [Tylenol .Extra-Strength -] 500 mg PO Q4H PRN 04/21/19 Acetaminophen [Tylenol .Regular Strength -] 650 mg PO Q3H PRN tablet 06/15/19 Ferrous Sulfate [Feosol] 325 mg PO DAILY #30 tab 06/15/19 Ibuprofen [Motrin -] 600 mg PO Q4H PRN #30 tablet 06/15/19 Vitamins (Sjr) - 1 tab PO DAILY #30 tablet 06/15/19
[2019-06-17] MEDS: FERROUS SO4 325 MG TABLET (FP) PO SCH (08:30)
[2019-06-17 09:00] VITALS: BP 105/45; PULSE 58; TEMP 98.1
[2019-06-17] MEDS: guaiFENesin 600 MG TABLET.ER (FP) PO SCH (10:00)
[2019-06-17] MEDS: PRENATAL VITAMINS W/ FOLIC ACID TABLET (FP) PO SCH (10:00)
[2019-06-17] MEDS: IBUPROFEN 600 MG TABLET (FP) PO PRN (11:48)
== END 2019-06-17 12:05 | disposition home or self-care (01) | DRG 560 ==
LOC: JLDR 17:10 → J3W 06-15 05:10
PROVIDERS: ADMIT Obstetrics & Gynecology; ATTEND Obstetrics & Gynecology
PROC: 3E0P7VZ Introduction of Hormone into Female Reproductive, Via Natural or Artificial Opening (ICD-10-PCS; 2019-06-14)
PROC: 10E0XZZ Delivery of Products of Conception, External Approach (ICD-10-PCS; principal; 2019-06-15)
DX: O48.0 Post-term pregnancy (principal); Z3A.40 40 weeks gestation of pregnancy; O69.81X0 Labor and delivery complicated by cord around neck, without compression, not applicable or unspecified; Z37.0 Single live birth
CPT/HCPCS: 36415; 36600; 59409; 80048; 80307; 82803; 85025; 85610; 85730; 86593; 86850; 86900; 86901

== ENCOUNTER 2021-02-05 16:46 | Emergency (ER) | payer OTHER ==
[2021-02-05 17:33] VITALS: BP 109/72; PULSE 82; TEMP 98.9; BMI 32.3
== END 2021-02-05 18:03 | disposition home or self-care (01) ==
LOC: JER 16:46
DX: U07.1 COVID-19 (principal)
CPT/HCPCS: 99283-25; C9803; U0003; U0005